=== PATIENT | male | born 1965 | race African-American/Black ===

== ENCOUNTER 2019-12-22 09:57 | Emergency (ER) | payer OTHER ==
[~2019-12-22] VITALS: Ht 170.2 cm; Wt 109.0 kg
--- NOTE | 2019-12-22 10:08 | PHYS DOC ---
General Adult EDM: Chief Complaint: BACK PAIN OR INJURY HPI: HPI: The history was obtained from the patient. Patient is a 54-year-old male with PMH chronic back pain, high blood pressure who presents with a chief complaint of low back pain. Patient states just prior to arrival he was bending over to picker and packer the wallet that he dropped. He states his right leg slipped out from under him causing him to strain his lower back. He states he has severe right lumbar pain. He states the pain is sharp and radiates down his right leg. States he has not been able to ambulate since the pain began. Denies falling or striking his head. Not taken medication prior to arrival. States he has a history of slipped disc in his lower back. Denies history of back surgeries. Denies urinary symptoms. Denies syncope. Denies abdominal pain or chest pain. Patient denies any urinary retention, stool incontinence, saddle anesthesia, history of IV drug use, or history of cancer. Review of Systems: Review of Systems: Constitutional: Denies fever or chills Eyes: Denies change in visual acuity HENT: Denies nasal congestion or sore throat Respiratory: Denies cough or shortness of breath Cardiovascular: Denies chest pain or edema GI: Denies abdominal pain, nausea, vomiting, bloody stools or diarrhea : Denies dysuria Musculoskeletal: Positive for back pain Integument: Denies rash Neurologic: Denies headache, focal weakness or sensory changes Endocrine: Denies polyuria or polydipsia Lymphatic: Denies swollen glands Psychiatric: Denies depression or anxiety Heart Score: Risk Factors: Risk Factors: DM, Current or recent (<one month) smoker, HTN, HLP, family history of CAD, obesity. Risk Scores: Score 0 - 3: 2.5% MACE over next 6 weeks - Discharge Home Score 4 - 6: 20.3% MACE over next 6 weeks - Admit for Clinical Observation Score 7 - 10: 72.7% MACE over next 6 weeks - Early Invasive Strategies Physical Exam: PE: Constitutional: Well developed, well nourished, no acute distress, non-toxic appearance. [] HENT: Normocephalic, atraumatic, bilateral external ears normal, oropharynx moist, no oral exudates, nose normal. [] Eyes: PERRLA, EOMI, conjunctiva normal, no discharge. [] Neck: Normal range of motion, no tenderness, supple, no stridor. [] Cardiovascular:Heart rate regular rhythm, no murmur [] Lungs & Thorax: Bilateral breath sounds clear to auscultation [] Abdomen: soft, no tenderness, no masses, no pulsatile masses. [] Skin: Warm, dry, no erythema, no rash. [] Back: Right lumbar paraspinal tenderness to palpation. Hypertonic musculature noted. + 5/5 motor strength in dorsiflexion and plantarflexion of the great toes bilaterally. Sensation intact between the webbing of the first and second toes bilaterally. Extremities: No tenderness, no cyanosis, no clubbing, ROM intact, no edema. [] Neurologic: Alert and oriented X 3, normal motor function, normal sensory function, no focal deficits noted. [] Psychologic: Affect normal, judgement normal, mood normal. [] Current Patient Data: Vital Signs: Vital Signs Date Time Temp Pulse Resp B/P (MAP) Pulse Ox O2 Delivery O2 Flow Rate FiO2 12/22/19 10:33 16 98 Room Air 12/22/19 10:13 98.1 80 16 148/82 (104) 95 Room Air EKG: EKG: [] Radiology/Procedures: Radiology/Procedures: [] Course & Med Decision Making: Course & Med Decision Making Pertinent Labs and Imaging studies reviewed. (See chart for details) [] Patient is an uncomfortable appearing 54-year-old male who presents with chief complaint of acute on chronic back pain. Patient states that he bent over to pick something up that exacerbated his chronic low back pain. Initial vital signs unremarkable. Physical exam overall reassuring. No red flag signs or symptoms regarding the patient's back pain. Given the atraumatic nature of his injury without neurologic signs advanced imaging will be deferred. His pain was well controlled with medication in the emergency department. He was able to ambulate. His repeat exam remains reassuring. He does state that he has follow-up with his primary care physician tomorrow morning. I encouraged usage of anti-inflammatories at home. He will be discharged home with a short course of muscle relaxant. Return precautions discussed and understood. Stable for discharge. Cory Disclaimer: Cory Disclaimer: This electronic medical record was generated, in whole or in part, using a voice recognition dictation system. Departure Departure: Impression: Primary Impression: Acute exacerbation of chronic low back pain Disposition: HOME/RESIDENCE PRIOR TO ADM Condition: STABLE Patient Instructions: Back Exercises Additional Instructions: Please follw up with your primary care physician tomorrow morning at your regularly scheduled appointmen Scripts Hydrocodone Bit/Acetaminophen (NORCO 5-325 TABLET) 1 Each Tablet 1 TAB PO Q6HRS for pain, #5 TAB Prov: SHELDON VALENCIA DO 12/22/19 Ibuprofen (IBUPROFEN) 200 Mg Tablet 600 MG PO QIDPRN PRN for PAIN, #15 TAB Prov: SHELDON VALENCIA DO 12/22/19 Cyclobenzaprine Hcl (CYCLOBENZAPRINE HCL) 10 Mg Tablet 1 TAB PO TID PRN PRN for PAIN, #12 TAB Prov: SHELDON VALENCIA DO 12/22/19 Justification of Admission: Justification of Admission: Justification of Admission Dx: N/A SHELDON VALENCIA DO Dec 22, 2019 10:08
[2019-12-22] MEDS ORDERED: LIDOCAINE (700MG/PATCH) PATCH. TD SCH (10:30)
[2019-12-22] MEDS ORDERED: CYCLOBENZAPRINE 10 MG TABLET. PO ONE (10:30)
[2019-12-22] MEDS ORDERED: HYDROmorphone PF 1 MG/ML DISP.SYRIN IM ONE (10:30)
[2019-12-22] MEDS ORDERED: KETOROLAC 30 MG/ML VIAL. IM ONE (10:30)
[2019-12-22] MEDS ORDERED: CYCL-331 PO (11:07)
[2019-12-22] MEDS ORDERED: IBUP-1673 PO (11:07)
[2019-12-22 11:11] VITALS: BP 126/88
[2019-12-22] MEDS ORDERED: HYDR-3165 PO (11:25)
== END 2019-12-22 11:48 | disposition home or self-care (01) ==
LOC: ER 09:57
DX: G89.29 Other chronic pain (principal); M54.5 Low back pain; I10 Essential (primary) hypertension
CPT/HCPCS: 96372; 99284; J1170; J1885

== ENCOUNTER → 2020-01-03 | Outpatient (CLI) | payer OTHER ==
[2019-12-22 11:11] VITALS: BP 126/88
[~2020-01-03] MED LIST: CYCL-331 PO; HYDR-3165 PO; IBUP-1673 PO
--- NOTE | 2020-01-03 14:56 | RAD ---
AP and Lateral Views of the Chest 01/03/2020 12:00 AM Indication: Reason: CHEST PAIN ON AND OFF FOR A YEAR. CHEST IS HURTING NOW. COUGH / Spl. Instructions: / History: Comparison: None Findings: There is mild right basilar atelectasis versus less likely infiltrate. No pneumothorax or effusion is seen. Heart size is normal. Lung volumes are low. No acute osseous changes are seen. IMPRESSION: Low lung volumes with right basilar opacity most likely representing atelectasis, versus less likely infiltrate. Electronically signed by: Leland العراقي MD (01/03/2020 2:53 PM) [id number]
== END ==
LOC: DXRAD 14:12
PROVIDERS: ATTEND Otolaryngology
DX: R05 Cough (principal)
CPT/HCPCS: 71046

== ENCOUNTER 2020-01-07 12:57 | Emergency (ER) | payer OTHER ==
[~2020-01-07] VITALS: Ht 170.2 cm; Wt 109.0 kg
[2020-01-07 13:08] VITALS: BP 144/80
[2020-01-07] MEDS ORDERED: PRED-220 PO (13:55)
[2020-01-07] MEDS ORDERED: TRIA15OI TP (13:55)
--- NOTE | 2020-01-07 13:58 | PHYS DOC ---
Past History Past Medical History: Hypertension, Other Additional Past Medical Histor: chronic back pain Past Surgical History: No Surgical History Alcohol Use: None General Adult EDM: Chief Complaint: SKIN RASH/ABSCESS HPI: HPI: 54-year-old male presents with itching. He has most pruritic in his bilateral hands. He noticed his left hand seem to be swelling and became very itchy with a burning sensation earlier today. He took a shower thinking there was something on his hand. After he got out of the shower he started to feel the same feeling in his right hand. He now has a diffuse feeling of itching on most of his body. He recently started Lamictal but has only taken 2 doses. He denies any other new exposures or changes in cosmetics. He called his doctor who prescribed that medication and they told him to stop taking it. Patient denies any shortness of breath or difficulty breathing. He has no other concerns at this time. Review of Systems: Review of Systems: Constitutional: Denies fever or chills Eyes: Denies change in visual acuity HENT: Denies nasal congestion or sore throat Respiratory: Denies cough or shortness of breath Cardiovascular: Denies chest pain or edema GI: Denies abdominal pain, nausea, vomiting, bloody stools or diarrhea : Denies dysuria Musculoskeletal: Denies back pain or joint pain Integument: Rash and pruritus Neurologic: Denies headache, focal weakness or sensory changes Endocrine: Denies polyuria or polydipsia Lymphatic: Denies swollen glands Psychiatric: Denies depression or anxiety Heart Score: Risk Factors: Risk Factors: DM, Current or recent (<one month) smoker, HTN, HLP, family history of CAD, obesity. Risk Scores: Score 0 - 3: 2.5% MACE over next 6 weeks - Discharge Home Score 4 - 6: 20.3% MACE over next 6 weeks - Admit for Clinical Observation Score 7 - 10: 72.7% MACE over next 6 weeks - Early Invasive Strategies Allergies: Allergies: Allergies Coded Allergies Type Severity Reaction Last Updated Verified morphine Allergy Unknown Nausea 12/22/19 Yes Physical Exam: PE: Constitutional: Well developed, well nourished, no acute distress, non-toxic appearance. [] HENT: Normocephalic, atraumatic, bilateral external ears normal, oropharynx moist, no oral exudates, nose normal. [] Eyes: PERRLA, EOMI, conjunctiva normal, no discharge. [] Neck: Normal range of motion, no tenderness, supple, no stridor. [] Cardiovascular:Heart rate regular rhythm, no murmur [] Lungs & Thorax: Bilateral breath sounds clear to auscultation [] Abdomen: Bowel sounds normal, soft, no tenderness, no masses, no pulsatile masses. [] Skin: Small patches of vesicles on the bilateral hands, some with rupture. Evidence of excoriation. [] Back: No tenderness, no CVA tenderness. [] Extremities: No tenderness, no cyanosis, no clubbing, ROM intact, no edema. [] Neurologic: Alert and oriented X 3, normal motor function, normal sensory function, no focal deficits noted. [] Psychologic: Affect normal, judgement normal, mood normal. [] Current Patient Data: Vital Signs: Vital Signs Date Time Temp Pulse Resp B/P (MAP) Pulse Ox O2 Delivery O2 Flow Rate FiO2 01/07/20 13:08 97.7 113 20 144/80 (101) 100 EKG: EKG: [] Radiology/Procedures: Radiology/Procedures: [] Course & Med Decision Making: Course & Med Decision Making Pertinent Labs and Imaging studies reviewed. (See chart for details) Based on the history and physical exam, I believe the patient may be having allergic reaction to his Lamictal. I have stressed that he should not take anymore at all. He will not take any more of this medicine. Again I treat him with prednisone, Pepcid, and Benadryl in the emergency room. I will discharge him a prescription for prednisone and triamcinolone cream. He is stable for discharge at this time. If the patient's condition significantly worsens and he has lots of skin sloughing, this could be Martinez-Sb syndrome or toxic epidermal necrolysis. In that case I have advised patient to return to the emergency room immediately. [] Dragon Disclaimer: Cory Disclaimer: This electronic medical record was generated, in whole or in part, using a voice recognition dictation system. Departure Departure: Impression: Primary Impression: Allergic reaction to drug Qualified Codes: T78.40XA - Allergy, unspecified, initial encounter Disposition: 01 DC HOME SELF CARE/HOMELESS Condition: STABLE Referrals: LEE COURTNEY MD (PCP) Patient Instructions: Drug Allergy, [id number] Scripts Triamcinolone Acetonide (TRIAMCINOLONE ACETONIDE 0.1% OINT) 15 Gm Oint...g. 1 ANUPAMA TP BID for rash/itching for 5 Days, #1 TUBE Prov: MIKALA STEVENSON DO 01/07/20 Prednisone (PREDNISONE) 10 Mg Tablet 10 MG PO UD for PREDNISONE TAPER, #24 TAB 0 Refills Take 5 tablets by mouth daily for 2 days, then take 4 tablets by mouth daily for 2 days, then take 2 tablet by mouth daily for 2 days, then take 1 tablet by mouth daily for 2 days, then stop. Prov: MIKALA STEVENSON DO 01/07/20 MIKALA STEVENSON DO Jan 07, 2020 13:58
[2020-01-07] MEDS ORDERED: diphenhydrAMINE HCL 25 MG CAPSULE PO ONE (14:00)
[2020-01-07] MEDS ORDERED: FAMOTIDINE 20 MG TABLET PO ONE (14:00)
[2020-01-07] MEDS ORDERED: predniSONE 20 MG TABLET PO ONE (14:00)
== END 2020-01-07 14:11 | disposition home or self-care (01) ==
LOC: ER 12:57
DX: R21 Rash and other nonspecific skin eruption (principal); L29.9 Pruritus, unspecified; T42.6X5A Adverse effect of other antiepileptic and sedative-hypnotic drugs, initial encounter; I10 Essential (primary) hypertension; G89.29 Other chronic pain; Z88.5 Allergy status to narcotic agent; Y92.89 Other specified places as the place of occurrence of the external cause
CPT/HCPCS: 99283